=== PATIENT | female | born 1940 | race Caucasian/White ===

== ENCOUNTER → 2017-11-18 | Day surgery (SDC) | payer MEDICARE ==
[2017-11-13 09:27] LABS: BASOPHILS # (AUTO) 0.1 (0.0-0.1); BASOPHILS % 1.5 % (0.0-1.0); EOSINOPHILS # (AUTO) 0.1 (0.0-0.4); EOSINOPHILS % 2.2 % (0.0-6.0); HEMATOCRIT 35.8 % (34.2-44.1); HEMOGLOBIN 11.8 g/dL (12.0-16.0); LYMPHOCYTES # (AUTO) 2.4 (1.0-3.2); LYMPHOCYTES % 40.2 % (18.0-39.1); MEAN CORPUSCULAR HEMOGLOBIN 29.4 pg (28-32); MEAN CORPUSCULAR VOLUME 89.1 fL (81-99); MONOCYTES # (AUTO) 0.4 (0.2-0.8); NEUTROPHILS # (AUTO) 2.9 (2.1-6.9); NEUTROPHILS % 48.8 % (38.7-80.0); PLATELET COUNT 316 x10e3/uL (140-360); RED BLOOD COUNT 4.02 x10e6/uL (3.6-5.1); RED CELL DISTRIBUTION WIDTH 13.3 % (11.7-14.4)
[~2017-11-18] MED LIST: CALCIUM CARBON500 MG PO; COLESTIPOL HCL1 GM PO; CRANBERRY500 M1 PO; FISH OIL 1,0001 EAC2; LIDOCAINE HCL 2% LOCAL INJ 5 ML SDV VIAL INJ ONE; LISINOPRIL10 MG PO; MIDAZOLAM HCL 2 MG/2 ML VIAL ONE; PANTOPRAZOLE 40 MG 10ML VIAL ONE; POTASSIUM CHLO10 ME1 PO; PREVAGEN; PROPOFOL IV EMULSION 10 MG/ML 50 ML VIAL ONE; [UNRECOGNIZED DRUG - OTHER]
--- OUTSIDE RECORDS SUMMARY | 2017-11-18 10:23 | XMS REPORT | Clinical Summary ---
Author Author [facility] Address Unknown Phone Unavailable Care Team Providers Care Shank Archer Name Role Phone [place] ar[place] PCP Allergies Active Allergy Reactions Severity Noted Date Comments Hydroxyzine Hcl 12/11/2016 Current Medications Prescription Sig. Disp. Refills Start End Date Status Date lisinopril Take 20 mg by mouth Active (PRINIVIL,ZESTRIL) 20 mg daily. tablet azelastine-fluticasone 1 spray by Each Nare Active (DYMISTA) 137-50 route 2 (two) times a mcg/spray day. spray,non-aerosol acetaminophen-codeine Take 1 tablet by mouth 10 tablet 0 12/12/19 (TYLENOL WITH CODEINE #3) every 4 (four) hours as 17 17 300-30 mg per tablet needed for moderate pain for up to 10 doses. Active Problems No known active problems Encounters Date Type Specialty Care Team Description 02/04/2017 Office Visit Ortho Sports Medicine Edgard Owens, Closed Colles' fracture MD of left radius with routine healing, subsequent encounter (Primary Dx) 01/14/2017 Office Visit Ortho Sports Medicine Edgard Owens, Closed Colles' fracture MD of left radius with routine healing, subsequent encounter (Primary Dx) 01/01/2017 Office Visit Ortho Sports Medicine Edgard Owens, Closed Colles' fracture MD of left radius with routine healing, subsequent encounter (Primary Dx) 12/14/2016 Office Visit Orthopedic Surgery Edgard Owens, Closed Colles' fracture MD of left radius, initial encounter (Primary Dx) 12/11/2016 Emergency Emergency Medicine Nickie Robertson MD Closed fracture of distal end of left radius, unspecified fracture morphology, initial encounter (Primary Dx) after 11/17/2016 Social History Tobacco Use Types Packs/Day Years Used Date Never Smoker Alcohol Use Drinks/Week oz/Week Comments Yes rare Sex Assigned at Date Recorded Not on file Last Filed Vital Signs Vital Sign Reading Time Taken Blood Pressure 128/77 02/04/2017 10:21 AM CDT Pulse 80 02/04/2017 10:21 AM CDT Temperature 36.7 C (98 F) 12/11/2016 11:49 AM CDT Respiratory Rate 20 12/11/2016 1:57 PM CDT Oxygen Saturation 98% 12/11/2016 1:57 PM CDT Inhaled Oxygen - - Concentration Weight 38.6 kg (85 lb) 02/04/2017 10:21 AM CDT Height 157.5 cm (5' 2") 02/04/2017 10:21 AM CDT Body Mass Index 15.55 02/04/2017 10:21 AM CDT Plan of Treatment Health Maintenance Due Date Last Done Comments COLONOSCOPY 1992 MAMMOGRAM 1992 ZOSTER VACCINE 2002 PNEUMOCOCCAL 2007 POLYSACCHARIDE VACCINE AGE 65 AND OVER PNEUMOCOCCAL-13 2007 INFLUENZA VACCINE 03/12/2018 Procedures Procedure Name Priority Date/Time Associated Diagnosis Comments MO APPLY FOREARM Routine 12/11/2016 Results for this SPLINT,STATIC 10:15 PM CDT procedure are in the results section. after 11/17/2016 Results * XR Wrist 3+ Vw Left (02/04/2017 10:40 AM) Only the most recent of 4 results within the time period is included. Specimen Performing Laboratory [address] [address] Narrative Xrays: The x-rays were ordered and personally reviewed by me. 3 views of the left wrist Reason for exam: left wrist pain Impression: Left distal radius fracture with interval healing from the last set of x-rays dorsal prominence appreciated * SPLINT APPLICATION (12/11/2016 10:15 PM) Narrative Bud Barr PA-C 12/11/20161:57 PM Splint Application Performed by: BUD BARR Authorized by: NICKIE ROBERTSON Consent: Consent obtained:Verbal Consent given by:Patient Risks discussed:Discoloration, numbness, pain and swelling Pre-procedure details: Sensation:Normal Procedure details: Laterality:Left Location:Wrist Wrist:L wrist Splint type:Volar short arm Supplies:Ortho-Glass, cotton padding and elastic bandage Post-procedure details: Pain:Unchanged Sensation:Normal Patient tolerance of procedure:Tolerated well, no immediate complications after 11/17/2016 Insurance Payer Benefit Subscriber ID Type Phone Address Plan / Group HUMANA MEDICARE HUMANA xxxxxxxxx PPO MEDICARE PPO/PFFS/E [facility] [place] [address]
--- NOTE | 2017-11-18 14:20 | Operative Report ---
DATE OF PROCEDURE: November 18, 2017 REFERRING PHYSICIAN: Dr. Roverto Francis PROCEDURE PERFORMED: Esophagogastroduodenoscopy with biopsies. INDICATIONS FOR EGD: Heartburn, nausea and vomiting. MEDICATION: Patient was done under MAC. Please see anesthesiologist's note. PROCEDURE: With the patient in the left lateral decubitus position, the flexible fiberoptic Olympus gastroscope was introduced into the esophagus under direct visualization without any difficulty. There was some patchy erythema noted in the distal esophagus. The scope was then advanced with ease into the stomach, traversing a small hiatal hernia. Mucosa overlying the antrum and the body revealed some patchy erythema and low-grade edema, and biopsies were obtained and sent to stain for H. pylori. The pylorus was of normal contour and shape. It was intubated with ease, and the scope was advanced all the way to the 2nd portion of the duodenum. The scope was then withdrawn slowly. Mucosa overlying the proximal 2nd portion and the duodenal bulb appeared to be within normal limits. The scope was then withdrawn back into the stomach and retroflexed. The mucosa overlying the fundus and the cardia appeared to be within normal limits. The scope was then straightened out. The stomach was decompressed. Scope was subsequently withdrawn. Patient tolerated the procedure well. IMPRESSION 1. Distal esophagitis, mild. 2. Small hiatal hernia. 3. Gastritis, biopsied. Biopsies sent to stain for H. pylori. PLAN: Follow up histology. Initiate Protonix 40 mg 1 p.o. q.a.m. a.c. Job#: [id number] cc:ROVERTO FRANCIS DO
== END | disposition home or self-care (01) ==
LOC: OR 10:20
PROVIDERS: ATTEND Internal Medicine Gastroenterology
DX: K29.70 Gastritis, unspecified, without bleeding (principal); K20.9 Esophagitis, unspecified; K44.9 Diaphragmatic hernia without obstruction or gangrene; M81.0 Age-related osteoporosis without current pathological fracture; I10 Essential (primary) hypertension; R00.1 Bradycardia, unspecified; Z01.810 Encounter for preprocedural cardiovascular examination; Z01.812 Encounter for preprocedural laboratory examination; Z80.0 Family history of malignant neoplasm of digestive organs
CPT/HCPCS: 36415; 43239; 85025; 88305; 88312; 93005; J2001; J2250

== ENCOUNTER 2018-03-20 12:25 | Observation (INO) | payer MEDICARE ==
[~2018-03-20] VITALS: Ht 157.5 cm; Wt 39.9 kg
[~2018-03-20 12:25] MED LIST changes: -LIDOCAINE HCL 2% LOCAL INJ 5 ML SDV VIAL INJ ONE; -MIDAZOLAM HCL 2 MG/2 ML VIAL ONE; -PANTOPRAZOLE 40 MG 10ML VIAL ONE; -PROPOFOL IV EMULSION 10 MG/ML 50 ML VIAL ONE
[2018-03-20] MEDS ORDERED: ONDANSETRON HCL INJ 2 MG/ML VIAL IV STA (12:51)
[2018-03-20 13:16] LABS: BASOPHILS # (AUTO) 0.1 (0.0-0.1); BASOPHILS % 0.8 % (0.0-1.0); EOSINOPHILS % 0.1 % (0.0-6.0); HEMATOCRIT 36.5 % (34.2-44.1); HEMOGLOBIN 12.2 g/dL (12.0-16.0); LYMPHOCYTES # (AUTO) 1.5 (1.0-3.2); LYMPHOCYTES % 21.1 % (18.0-39.1); MEAN CORPUSCULAR HEMOGLOBIN 29.8 pg (28-32); MEAN CORPUSCULAR HGB CONC 33.4 g/dL (31-35); MONOCYTES # (AUTO) 0.3 (0.2-0.8); NEUTROPHILS # (AUTO) 5.3 (2.1-6.9); NEUTROPHILS % 73.9 % (38.7-80.0); PLATELET COUNT 345 x10e3/uL (140-360); RED CELL DISTRIBUTION WIDTH 13.1 % (11.7-14.4)
[2018-03-20 13:25] LABS: INR 0.98; PROTHROMBIN TIME 12.2 seconds (11.9-14.5)
[2018-03-20 13:26] LABS: PARTIAL THROMBOPLASTIN TIME 30.6 seconds (23.8-35.5)
[2018-03-20 13:31] LABS: CLARITY,URINE CLEAR (CLEAR); COLOR,URINE YELLOW (YELLOW); LEUKOCYTE ESTERASE ,URINE NEGATIVE (NEGATIVE); NITRITE,URINE NEGATIVE (NEGATIVE); PROTEIN,URINE DIPSTICK NEGATIVE (NEGATIVE)
[2018-03-20 13:32] LABS: BILIRUBIN,URINE NEGATIVE (NEGATIVE); KETONES,URINE 2+ (NEGATIVE); URINE UROBILINOGEN 0.2 mg/dL (0.2 - 1)
[2018-03-20 13:33] LABS: ALANINE AMINOTRANSFERASE 23 IU/L (0-55); ALBUMIN 4.2 g/dL (3.5-5.0); ALBUMIN/GLOBULIN RATIO 1.2 (0.8-2.0); ALKALINE PHOSPHATASE 70 IU/L (40-150); ANION GAP 16.9 mmol/L (8-16); BLOOD UREA NITROGEN 16 mg/dL (7-26); BUN/CREATININE RATIO 22 (6-25); CALCIUM 9.9 mg/dL (8.4-10.2); CARBON DIOXIDE 24 mmol/L (22-29); CHLORIDE 103 mmol/L (98-107); CREATINE KINASE 63 IU/L (29-168); CREATININE, SERUM 0.72 mg/dL (0.57-1.11); EST GLOMERULAR FILTRATION RATE > 60 ML/MIN (60-); GLUCOSE 107 mg/dL (74-118); MAGNESIUM 1.9 MG/DL (1.3-2.1); POTASSIUM 3.9 mmol/L (3.5-5.1); SODIUM 140 mmol/L (136-145)
[2018-03-20 13:34] LABS: BACTERIA,URINE RARE /HPF; EPITHELIAL CELLS,URINE RARE /LPF; RBC,URINE 0-5 /HPF (0-5); WBC,URINE (MAN) 0-5 /HPF (0-5)
--- NOTE | 2018-03-20 13:43 | Diagnostic Imaging Report ---
History:Dizziness Comparison studies:None Technique: Axial images were obtained from the skull base to the vertex. Coronal and sagittal images reconstructed from the axial data. Intravenous contrast: None Findings: Scalp/skull: No abnormalities. Extra-axial spaces: No masses. No fluid collections. Brain sulci: Mildly prominent. Ventricles: Mild compensatory dilatation. No hydrocephalus. Parenchyma: Few hypodensities in the supratentorial white matter are small vessel ischemic changes. No masses, hemorrhage, acute or chronic cortical vascular insults. Sellar/suprasellar region: No abnormalities. Craniocervical junction: Patent foramen magnum. No Chiari one malformation. Incidental findings: Atherosclerotic calcifications in the carotid siphons . Impression: No acute abnormalities. Chronic findings: 1. Mild generalized volume loss. 2. Mild supratentorial white matter small vessel ischemic changes. Signed by: DR Roscoe Siu M.D. on 03/20/2018 1:40 PM
[2018-03-20] MEDS ORDERED: POTASSIUM CHLORIDE 10MEQ/100ML 100 ML IV ONE (14:00)
[2018-03-20] MEDS ORDERED: MECLIZINE HCL 12.5 MG TAB PO ONE (14:00)
--- NOTE | 2018-03-20 14:04 | Diagnostic Imaging Report ---
PROCEDURE: A single AP view of the chest. COMPARISON: None. INDICATIONS: VERTIGO, NAUSEA FINDINGS: Lines/tubes: None. Lungs: The lungs are mildly hyperinflated. Biapical pleural-parenchymal scarring and left apical pleural thickening. There is no evidence of pneumonia or pulmonary edema. Pleura: There is no pleural effusion or pneumothorax. Heart and mediastinum: The heart and the mediastinum are unremarkable. Bones: No acute bony abnormality. Degenerative changes in the thoracic spine. IMPRESSION: 1. No acute cardiopulmonary abnormalities. 2. Mildly hyperinflated lungs may represent COPD. Biapical pleuroparenchymal scarring and left apical pleural thickening. No prior films are available for comparison. Recommend chest PA and lateral in 1-2 months to document stability. Alternatively, a chest CT may be obtained for further evaluation. John Paul Graham M.D. Dictated by: John Paul Graham M.D. on 03/20/2018 at 14:10 Electronically approved by: John Paul Graham M.D. on 03/20/2018 at 14:10
[2018-03-20] MEDS ORDERED: ONDANSETRON HCL INJ 2 MG/ML VIAL IV PRN (15:15)
[2018-03-20 17:00] VITALS: BP 160/73
[2018-03-20] MEDS ORDERED: PANTOPRAZOLE SO40 MG PO (17:10)
[2018-03-20 18:42] VITALS: BP 160/73
[2018-03-20 20:00] VITALS: BP 136/67
[2018-03-20 21:51] LABS: CREATINE KINASE 58 IU/L (29-168)
[2018-03-20 22:17] VITALS: BP 136/67
[2018-03-21] VITALS: BP 162/74
[2018-03-21 04:00] VITALS: BP 143/65
[2018-03-21 06:03] LABS: CREATINE KINASE 52 IU/L (29-168)
[2018-03-21 08:23] VITALS: BP 150/67
--- NOTE | 2018-03-21 10:23 | Diagnostic Imaging Report ---
EXAMINATION: MR angiogram of the [place] [without] contrast CLINICAL HISTORY: Generalized weakness, dizziness, evaluate for CVA. COMPARISON: Brain MRI on 03/20/18. TECHNIQUE: 3D TOF MR angiogram sequences of the head was performed without contrast. MIP images of the arteries were isolated into anterior-posterior groups. The source images, reformatted axial and coronal images, and bottling equipment sales representative projections of the MIP images through 180 degrees of rotation and tumbling were reviewed. FINDINGS: The vessels of the [place] and posterior circulation are patent, there is no evidence of significant stenosis. No vascular malformation or aneurysmal dilatation is identified. Anatomic variation: Anterior Communicating Artery: Patent Posterior Communicating Arteries: Patent on the left, no visualized on the right Vertebral arteries: Codominant Hypoplastic right A1 segment. IMPRESSION: Normal MR angiogram of the [place]. Particularly no major vessel occlusion or stenosis and no vascular malformations. Signed by: Dr. Clementina Zuniga M.D. on 03/21/2018 10:20 AM
[2018-03-21 11:52] VITALS: BP 147/96
[2018-03-21 16:18] VITALS: BP 125/81
[2018-03-21] MEDS ORDERED: LISINOPRIL 20 MG TAB PO SCH (17:00)
--- NOTE | 2018-03-21 22:19 | Consultation ---
DATE OF CONSULTATION: March 21, 2018 NEUROLOGY CONSULT NOTE HISTORY OF PRESENT ILLNESS: Ms. Herman is a 77-year-old right-hand dominant woman with past medical history significant for hypertension and chronic intermittent benign positional vertigo, admitted to [facility] on March 20, 2018 with severe vertigo. On the evening of March 19, 2018, the patient experienced the onset of severe vertigo with nausea. She does not report blurred vision or vomiting associated with the vertigo. Ms. Herman does report the vertigo began suddenly. As the patient has a history of chronic intermittent vertigo, she did not seek immediate medical attention. She did go to bed because often her vertigo has improved after a full night's sleep. However, the severe vertigo continued to be present upon awakening the following morning. Ms. Herman does not report a visual field cut or other disturbance, dysarthria, aphasia, facial droop, weakness, numbness, or confusion. She does endorse some impairment of balance and gait, which she attributes to the vertigo. While at home, Ms. Herman took meclizine 25 mg by mouth. This did not improve her symptoms. The patient then proceeded to the emergency center at [facility] for further evaluation of her symptoms. Upon arrival in the emergency center, the patient was afebrile with a blood pressure of 194/101 mmHg and a pulse of 97 beats per minute. Her neurological examination was documented as follows: Alert. Oriented x3. Mood/affect normal. Speech normal. No facial weakness or decrease in corneal reflex. No cerebellar findings. Abnormal gait (ambulates with assistance due to generalized weakness). No abnormal finger-nose test. No motor deficit. No sensory deficits. While in the emergency center, a CT of the brain without contrast was performed, but did not show evidence of recent large territorial ischemia or hemorrhage. Ms. Herman was admitted to [facility] as an inpatient for further evaluation of her symptoms. As detailed above, the patient has experienced chronic intermittent benign positional vertigo since the late or early . Often times, the vertigo occurs once per year, but may occur as often as 2 to 3 times per year. When she experiences the benign positional vertigo, the patient sees her primary care physician who administers an injection of an unknown medication. Ms. Herman reports the medicine "knocks me out." When the patient awakens several hours later, the vertigo has resolved. REVIEW OF SYSTEMS: Nausea, vertigo. Otherwise, the 12-point review of systems is negative. PAST MEDICAL HISTORY: Hypertension, peptic ulcer disease, chronic intermittent benign positional vertigo. PAST SURGICAL HISTORY: Esophagogastroduodenoscopy, colonoscopy, partial hysterectomy, removal of a cyst from the right breast, cholecystectomy, tumor resection from the right leg (benign), resection of a cyst on the neck, removal of a bone spur from the foot, appendectomy. PAST HOSPITALIZATIONS: Surgeries/procedures as listed, urinary tract infection, childbirth x2. FAMILY MEDICAL HISTORY: The patient's paternal and maternal grandparents are . Their medical histories are unknown. The patient's father is from a stroke. He had a history of diabetes mellitus as well. Ms. Herman's mother is from pancreatic cancer. She had a history of diabetes mellitus as well. Ms. Herman has 3 siblings, 2 brothers and 1 sister, all of whom are living. Both brothers have diabetes mellitus. Her sister has multiple urinary tract infections. Ms. Herman has 2 daughters, both of whom are alive and healthy. SOCIAL HISTORY: The patient is . She is a high school graduate. 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 The patient does not report current or prior tobacco or recreational drug use. She does drink an occasional glass of wine. HOME MEDICATIONS: Calcium carbonate 500 mg by mouth daily, colestipol 1 g by mouth daily, cranberry 500 mg by mouth daily, lisinopril 20 mg by mouth daily, omega-3 fatty acids/fish oil 1000 mg by mouth daily, Protonix 40 mg by mouth daily, Prevagen 10 mg by mouth daily. ALLERGIES: VISTARIL CAUSES VOMITING. NO KNOWN FOOD ALLERGIES. NO KNOWN ALLERGIES TO LATEX. NO KNOWN ALLERGIES TO IODINE OR OTHER CONTRAST MATERIALS. PHYSICAL EXAMINATION: VITAL SIGNS: Height 62 inches, weight 88 pounds, BMI 16.1 kg/sq m. Blood pressure 147/96 mmHg, pulse 88 beats per minute, respiratory rate 16 breaths per minute, oxygen saturation 98% on room air. GENERAL: The patient is awake and alert, does not appear distressed. Thin. HEENT: Normocephalic, atraumatic. Pupils are equal, round, and reactive to light. Moist mucous membranes. NECK: Supple. No appreciable thyromegaly. No appreciable carotid bruits. CARDIOVASCULAR: S1, S2, regular rate and rhythm. No murmurs, rubs, or gallops. RESPIRATORY: Clear to auscultation bilaterally. No wheezes, rhonchi, or rales. EXTREMITIES: The skin is warm and dry. No clubbing, cyanosis, or edema. The posterior tibial and dorsalis pedis pulses are 2+ and symmetric. SKIN: No rashes or lesions. NEUROLOGIC EXAMINATION: MEMORY/ATTENTION: The patient is awake and alert, oriented to person, place, time, and situation. CRANIAL NERVES: Cranial nerve I - not tested. Cranial nerves II, III, IV, and - Pupils are equal and round, react briskly to light (from 4 mm to 2 mm). Extraocular movements intact. No nystagmus. Cranial nerve V - Sensation to light touch and pinprick is intact in the bilateral V1 through V3 distributions. Strength of the temporalis and masseter muscles is within normal limits. Cranial nerve VII - The face is symmetric as are all facial movements. Strength is within normal limits. Cranial nerve VIII - Hearing is intact to finger rub bilaterally. Cranial nerve IX, X - The soft palate elevates equally and symmetrically. Cranial nerve XI - Normal strength of the bilateral sternocleidomastoid and trapezius muscles. Cranial nerve XII - The tongue protrudes midline and moves symmetrically from side to side. STRENGTH: Bulk is normal. Strength is 5/5 in the bilateral deltoids, biceps, triceps, wrist flexors and extensors, finger flexors and extensors, intrinsic hand muscles, hip flexors, knee flexors and extensors, ankle dorsiflexion and plantarflexion, and intrinsic foot muscles. Tone is normal. DTRs: Deep tendon reflexes are 2+ and symmetric at the triceps, biceps, brachioradialis, and patellas. Deep tendon reflexes are absent and symmetric at the Achilles. Plantar responses are flexor bilaterally. SENSATION: Sensation is intact to light touch and pinprick in both arms and both legs. CEREBELLAR: [id number] and heel-mary movements are intact without dysmetria or other impairment. Rapid alternating movements are intact. GAIT: Deferred. SPEECH: Spontaneous speech is normal without appreciable dysarthria or aphasia. Repetition is intact. INVOLUNTARY MOVEMENTS: None. PRONATOR DRIFT: None. LABORATORY DATA: The findings on the complete metabolic panel are within normal limits. Creatine kinase 63, 58, 52. CK-MB 1.10, 1.00, 1.00. Troponin I less than 0.001, less than 0.001, less than 0.001. B natriuretic peptide 90.4. The CBC with differential and platelets reveals a white blood cell count of 7.24 with a normal differential. The hemoglobin and hematocrit are 12.2 and 36.5, respectively. The platelet count is 345,000. PT 12.2, INR 0.98, PTT 30.6. A urinalysis is significant for 2+ ketones and 1+ blood. DIAGNOSTIC STUDIES: 1. Electrocardiogram, March 20, 2018: Normal sinus rhythm. 2. Chest x-ray, March 20, 2018: A. No acute cardiopulmonary abnormalities. B. Mildly hyperinflated lungs may represent COPD. Biapical pleural-parenchymal scarring and left apical pleural thickening. No prior films are available for comparison. Recommend chest PA and lateral in 1 to 2 months to document stability. Alternatively, a chest CT may be obtained for further evaluation. 3. CT of the brain without contrast, March 20, 2018: On my review, there is no evidence of recent large territorial ischemia, hemorrhage, mass, or mass effect. There is mild diffuse cerebral atrophy, appropriate for the patient's age. There are findings compatible with mild chronic small-vessel ischemic disease. 4. Bilateral carotid artery ultrasound with Doppler, March 20, 2018: There is atherosclerosis without hemodynamically significant stenosis at the bilateral carotid bulbs and bifurcations. Flow is antegrade in the bilateral vertebral arteries. 5. MRI of the brain without contrast, March 21, 2018: On my review, there is no evidence of recent large territorial ischemia, hemorrhage, mass, or mass effect. There is encephalomalacia in the left posterior middle cerebral artery distribution, possibly from a prior vascular insult. There is diffuse cerebral atrophy, appropriate for age. There are nonspecific scattered T2/FLAIR hyperintensities compatible with [id number] chronic small-vessel ischemic disease. 6. Head MRA without contrast, March 21, 2018: There are no hemodynamically significant stenoses of the intracranial blood vessels. ASSESSMENT AND PLAN: Ms. Herman is a 77-year-old right-hand dominant woman with past medical history significant for hypertension and chronic intermittent benign positional vertigo, admitted to [facility] on March 20, 2018 with severe vertigo and nausea. Ms. Herman symptoms resolved following the administration of meclizine 50 mg by mouth once. At present, the patient's neurological examination is nonfocal. Her laboratory data and other diagnostic studies have been reviewed and are documented above. The magnetic resonance imaging of the brain without contrast does not reveal a recent ischemic stroke or hemorrhage as the etiology of Ms. Herman symptoms. In my opinion, her symptoms probably represent a recurrence of her chronic intermittent benign positional vertigo. At present, the patient's symptoms have resolved. Her neurological examination is nonfocal. Therefore, there are no further recommendations from neurology at this time. Ms. Herman may be discharged to home. Thank you for this consultation. TIME SPENT: 70 minutes. Job#: [id number] DR CAVAZOS
--- NOTE | 2018-03-24 12:31 | Diagnostic Imaging Report ---
History: Dizziness Comparison studies: None Technique: Sagittal T2; axial DWI, FLAIR, MPGR, T1, Coronal FLAIR. Intravenous contrast: None Findings: Scalp: Normal in signal . No masses . Bone marrow: Normal in signal intensity. Extra-axial: No masses or fluid collections. Brain sulci: Appropriate for age. Ventricles: Normal in size . No hydrocephalus . Parenchyma: Scattered T2 FLAIR hyperintense foci in the supratentorial white matter are nonspecific small vessel ischemic changes. No masses, hemorrhage, acute or chronic cortical ischemic insults. Suprasellar region: No abnormalities. Craniocervical junction: No abnormalities. Patent foramen magnum. No Chiari one malformation. Vessels: Normal flow-voids in the arteries and sinuses. IMPRESSION: No acute abnormalities. Chronic findings: 1. Mild generalized volume loss 2. Mild supratentorial white matter small vessel ischemic changes. Signed by: Dr. Kyrie Brandon M.D. on 03/20/2018 5:58 PM
== END 2018-03-21 19:22 | disposition home or self-care (01) ==
LOC: ER 12:25 → ERHOLD 15:24 → MED/SURG 16:47
DX: H81.13 Benign paroxysmal vertigo, bilateral (principal); R53.1 Weakness; I10 Essential (primary) hypertension; K21.9 Gastro-esophageal reflux disease without esophagitis
CPT/HCPCS: 36415 ×2; 70450; 70544; 70551; 71045; 80053; 81001; 82550 ×2; 82553 ×2; 83735; 83880; 84484 ×2; 85025; 85610; 85730; 93005; 93880; 97139; 99284; G0378 ×2; J2405

== ENCOUNTER 2018-05-13 11:59 | Emergency (ER) | payer MEDICARE, OTHER ==
[~2018-05-13] VITALS: Ht 157.5 cm; Wt 40.8 kg
[~2018-05-13 11:59] MED LIST changes: +PANTOPRAZOLE SO40 MG PO
[2018-05-13] MEDS ORDERED: MORPHINE SULFATE INJ 4 MG/ML INJ IV STA (12:48)
[2018-05-13] MEDS ORDERED: SODIUM CHLORIDE 0.9% 1000ML 1,000 ML IV STA (12:48)
[2018-05-13] MEDS ORDERED: ONDANSETRON HCL INJ 2 MG/ML VIAL IV ONE (13:00)
[2018-05-13] MEDS ORDERED: FAMOTIDINE 20 MG/2 ML VIAL IV ONE (13:00)
[2018-05-13 13:13] LABS: BASOPHILS # (AUTO) 0.1 (0.0-0.1); BASOPHILS % 0.6 % (0.0-1.0); HEMATOCRIT 32.8 % (34.2-44.1); HEMOGLOBIN 10.7 g/dL (12.0-16.0); LYMPHOCYTES % 11.9 % (18.0-39.1); MEAN CORPUSCULAR HEMOGLOBIN 29.5 pg (28-32); MEAN CORPUSCULAR HGB CONC 32.6 g/dL (31-35); MEAN CORPUSCULAR VOLUME 90.4 fL (81-99); MONOCYTES # (AUTO) 0.3 (0.2-0.8); MONOCYTES % 3.1 % (4.4-11.3); NEUTROPHILS # (AUTO) 7.4 (2.1-6.9); NEUTROPHILS % 84.1 % (38.7-80.0); PLATELET COUNT 338 x10e3/uL (140-360); RED BLOOD COUNT 3.63 x10e6/uL (3.6-5.1); RED CELL DISTRIBUTION WIDTH 13.3 % (11.7-14.4)
[2018-05-13 13:34] LABS: BILIRUBIN,URINE NEGATIVE (NEGATIVE); CLARITY,URINE CLEAR (CLEAR); COLOR,URINE YELLOW (YELLOW); KETONES,URINE NEGATIVE (NEGATIVE); LEUKOCYTE ESTERASE ,URINE NEGATIVE (NEGATIVE); NITRITE,URINE NEGATIVE (NEGATIVE); PROTEIN,URINE DIPSTICK NEGATIVE (NEGATIVE); URINE UROBILINOGEN 0.2 mg/dL (0.2 - 1)
[2018-05-13 13:35] LABS: ALANINE AMINOTRANSFERASE 15 IU/L (0-55); ALBUMIN/GLOBULIN RATIO 1.3 (0.8-2.0); ALKALINE PHOSPHATASE 55 IU/L (40-150); AMYLASE 40 U/L (25-125); ANION GAP 15.6 mmol/L (8-16); BLOOD UREA NITROGEN 24 mg/dL (7-26); BUN/CREATININE RATIO 35 (6-25); CALCIUM 9.5 mg/dL (8.4-10.2); CARBON DIOXIDE 23 mmol/L (22-29); CHLORIDE 105 mmol/L (98-107); CREATININE, SERUM 0.68 mg/dL (0.57-1.11); EST GLOMERULAR FILTRATION RATE > 60 ML/MIN (60-); GLUCOSE 105 mg/dL (74-118); LIPASE 20 U/L (8-78); POTASSIUM 3.6 mmol/L (3.5-5.1); SODIUM 140 mmol/L (136-145)
[2018-05-13 13:44] LABS: EPITHELIAL CELLS,URINE RARE /LPF
[2018-05-13] MEDS ORDERED: ACETAMINOPHEN 325 MG TAB PO ONE (13:45)
--- NOTE | 2018-05-13 14:52 | Diagnostic Imaging Report ---
ADDENDUM #1 The following addendum is being made to comply with coding criteria, and does not substantially change the findings or recommendations of the original report All CT scans are performed using radiation dose reduction techniques. Technical factors are evaluated and adjusted to ensure appropriate moderation of exposure. Automated dose management technology is applied to adjust the radiation dose to minimize exposure while achieving a diagnostic-quality image. Signed by: Dr. Han Mcpherson M.D. on 05/20/2018 12:04 PM ORIGINAL REPORT EXAM: CT Abdomen and Pelvis WITH contrast INDICATION: Abdominal pain. Prior cholecystectomy. Appendectomy. Hysterectomy. COMPARISON: None. TECHNIQUE: Abdomen and pelvis were scanned utilizing a multidetector helical scanner from the lung base to the pubic symphysis after administration of IV contrast. Coronal and sagittal reformations were obtained. Routine protocol was performed. Scan was performed when during portal venous phase. IV CONTRAST: 100 mL of Isovue-370 ORAL CONTRAST: Water RADIATION DOSE: Total DLP: 158.88 mGy*cm Estimated effective dose: (DLP x 0.015 x size factor) mSv COMPLICATIONS: None FINDINGS: LINES and TUBES: None. LOWER THORAX: Ill-defined groundglass density in the right lung base could be due to a resolving pneumonia. HEPATOBILIARY: No focal hepatic lesions. No biliary ductal dilation. GALLBLADDER: Surgically absent. Prominent common bile duct likely due to reservoir effect from cholecystectomy. SPLEEN: No splenomegaly. PANCREAS: No focal masses or ductal dilatation. ADRENALS: No adrenal nodules KIDNEYS/URETERS: Kidneys enhance symmetrically. No hydronephrosis. Small hypodensities in the kidneys likely due to small cysts. No stones. GI TRACT: No abnormal distention, wall thickening, or evidence of bowel obstruction. Scattered diverticulosis without evidence of diverticulitis. PELVIC ORGANS/BLADDER: Unremarkable. LYMPH NODES: No lymphadenopathy. VESSELS: Scattered vascular calcification. PERITONEUM / RETROPERITONEUM: No free air or fluid. BONES: Unremarkable. SOFT TISSUES: Unremarkable. IMPRESSION: 1. Scattered diverticulosis without evidence of diverticulitis. Signed by: Dr. Han Mcpherson M.D. on 05/13/2018 2:49 PM
[2018-05-13] MEDS ORDERED: IOPAMIDOL 370 MG/ML 200 ML INFUS..BTL INJ ONE (15:46)
[2018-05-13] MEDS ORDERED: SODIUM CHLORIDE 0.9% 50ML 50 ML ONE (15:46)
[2018-05-13 16:39] VITALS: BP 119/78
== END 2018-05-13 18:31 | disposition home or self-care (01) ==
LOC: ER 11:59
DX: R10.11 Right upper quadrant pain (principal); R10.13 Epigastric pain; R11.2 Nausea with vomiting, unspecified; E86.0 Dehydration; K29.00 Acute gastritis without bleeding; I10 Essential (primary) hypertension
CPT/HCPCS: 36415; 74177; 80053; 81001; 82150; 83690; 85025; 87040; 87086; 93005; 99284; J2405; J7030; Q9967

== ENCOUNTER → 2018-11-15 | Day surgery (SDC) | payer MEDICARE ==
[2018-11-12 15:02] LABS: BASOPHILS # (AUTO) 0.1 (0.0-0.1); BASOPHILS % 1.1 % (0.0-1.0); EOSINOPHILS # (AUTO) 0.1 (0.0-0.4); EOSINOPHILS % 0.9 % (0.0-6.0); HEMATOCRIT 33.6 % (34.2-44.1); HEMOGLOBIN 10.8 g/dL (12.0-16.0); LYMPHOCYTES # (AUTO) 2.4 (1.0-3.2); LYMPHOCYTES % 28.8 % (18.0-39.1); MEAN CORPUSCULAR HEMOGLOBIN 29.3 pg (28-32); MEAN CORPUSCULAR HGB CONC 32.1 g/dL (31-35); MEAN CORPUSCULAR VOLUME 91.1 fL (81-99); MONOCYTES # (AUTO) 0.5 (0.2-0.8); MONOCYTES % 6.1 % (4.4-11.3); NEUTROPHILS # (AUTO) 5.1 (2.1-6.9); NEUTROPHILS % 62.9 % (38.7-80.0); PLATELET COUNT 346 x10e3/uL (140-360); RED BLOOD COUNT 3.69 x10e6/uL (3.6-5.1); RED CELL DISTRIBUTION WIDTH 13.2 % (11.7-14.4)
[~2018-11-15] MED LIST changes: +ALENDRONATE SOD70 MG PO; +CRANBERRY TABL1 EACH PO; +FENTANYL CITRATE/PF 100MCG/2 ML INJ ONE; +FISH OIL 1,0001 EAC2 PO; +GLUCAGON FOR INJ 1 MG VIAL ONE; +MIDAZOLAM HCL 2 MG/2 ML VIAL ONE; +PROPOFOL IV EMULSION 10 MG/ML 50 ML VIAL ONE
--- NOTE | 2018-11-15 23:37 | Operative Report ---
DATE OF PROCEDURE: 11/15/2018 SURGEON: Gerardo Cordova MD PROCEDURES: Colonoscopy and polypectomy. INDICATIONS FOR COLONOSCOPY: Surveillance colonoscopy, personal history of colon polyps. MEDICATIONS: The patient was done under MAC, please see anesthesiologist's note. PROCEDURE IN DETAIL: With the patient in left lateral decubitus position, a flexible fiberoptic Olympus colonoscope was inserted into the rectum with ease and advanced all the way to the cecum. It was then withdrawn slowly. Mucosa overlying the cecum, ascending colon, transverse colon grossly appeared to be within normal limits. Some diverticular disease was noted in the distal descending and sigmoid colon. One polyp was hot biopsied from the sigmoid colon. The rectum grossly appeared to be within normal limits. The scope was then retroflexed into the distal rectum and small internal hemorrhoids were noted, none of which was actively bleeding. The scope was then straightened out, it was subsequently withdrawn. The patient tolerated procedure well. IMPRESSION: 1. Diverticulosis. 2. Sigmoid colon polyp, hot biopsied. 3. Internal hemorrhoids, none actively bleeding. PLAN: Follow up histology. Initiate high-fiber, low-fat diet. Initiate high-fiber supplement. No additional surveillance colonoscopy is indicated in this 78-year-old patient. MD VICKI Mensah/SHERICE /[id number] cc: Carlo Norris DO
--- OUTSIDE RECORDS SUMMARY | 2018-11-17 14:06 | XMS REPORT | Clinical Summary ---
Author Author [facility] Address Unknown Phone Unavailable Care Team Providers Care Senior Project Manager Engineering Name Role Phone Carlo Norris DO PCP Allergies Comments Active Allergy Reactions Severity Noted Date Hydroxyzine Hcl 12/11/2016 Medications End Date Status Medication Sig Dispensed Refills Start Date Active lisinopril Take 20 mg by 0 (PRINIVIL,ZESTRIL) 20 mg mouth daily. tablet Active azelastine-fluticasone 1 spray by 0 (DYMISTA) 137-50 Each Nare mcg/spray route 2 (two) spray,non-aerosol times a day. Active Problems No known active problems Social History Date Tobacco Use Types Packs/Day Years Used Never Smoker Alcohol Use Drinks/Week oz/Week Comments Yes rare Sex Assigned at Date Recorded Not on file Industry Job Start Date Occupation Not on file Not on file Not on file Travel End Travel History Travel Start No recent travel history available. Last Filed Vital Signs Not on file Plan of Treatment Health Maintenance Due Date Last Done Comments SHINGLES VACCINES (#1) 1992 65+ PNEUMOCOCCAL VACCINE 2007 (1 of 2 - PCV13) PNEUMOCOCCAL 2007 POLYSACCHARIDE VACCINE AGE 65 AND OVER INFLUENZA VACCINE 03/12/2019 Results Not on fileafter 11/16/2017 Insurance Payer Benefit Subscriber ID Type Phone Address Plan / Group [employer] MEDICARE HU[employer]NA xxxxxxxxx PPO MEDICARE PPO/PFFS/[facility] JEFF guerrero (Home) [place] [address] Advance Directives Patient has advance care planning documents on file. For more information, becky romero contact: Rigoberto Mack [phone] [place] [address]
== END | disposition home or self-care (01) ==
LOC: OR 12:42
PROVIDERS: ATTEND Internal Medicine Gastroenterology
DX: Z09 Encounter for follow-up examination after completed treatment for conditions other than malignant neoplasm (principal); K63.5 Polyp of colon; K57.30 Diverticulosis of large intestine without perforation or abscess without bleeding; K64.8 Other hemorrhoids; K29.70 Gastritis, unspecified, without bleeding; K21.9 Gastro-esophageal reflux disease without esophagitis; I10 Essential (primary) hypertension; M81.0 Age-related osteoporosis without current pathological fracture; Z88.8 Allergy status to other drugs, medicaments and biological substances; Z01.810 Encounter for preprocedural cardiovascular examination; Z01.812 Encounter for preprocedural laboratory examination; Z80.0 Family history of malignant neoplasm of digestive organs
CPT/HCPCS: 36415; 45384; 85025; 88305; 93005; J1610; J2250; J2704

== ENCOUNTER → 2021-07-25 | Outpatient (CLI) | payer MEDICARE ==
[~2021-07-25] MED LIST changes: -FENTANYL CITRATE/PF 100MCG/2 ML INJ ONE; -GLUCAGON FOR INJ 1 MG VIAL ONE; -MIDAZOLAM HCL 2 MG/2 ML VIAL ONE; -PROPOFOL IV EMULSION 10 MG/ML 50 ML VIAL ONE
== END ==
LOC: DX 12:36
PROVIDERS: ATTEND Family Medicine
DX: M81.8 Other osteoporosis without current pathological fracture (principal); N95.0 Postmenopausal bleeding
CPT/HCPCS: 77080

== ENCOUNTER → 2021-07-27 | Outpatient (CLI) | payer MEDICARE | LOC: MAMMO 12:54 | PROVIDERS: ATTEND Family Medicine | DX: Z12.31 Encounter for screening mammogram for malignant neoplasm of breast (principal) | CPT/HCPCS: 77067 ==

== ENCOUNTER → 2022-06-26 | Outpatient (CLI) | payer MEDICARE ==
[~2022-06-26] MED LIST changes: +DIATRIZOATE MEGL/DIATRIZOA SOD 30 ML BTL PO ONE; +IOPAMIDOL 370 MG/ML 100 ML INFUS..BTL INJ ONE
[2022-06-26 12:52] LABS: CREATININE, SERUM 0.74 mg/dL (0.57-1.11)
== END ==
LOC: CT 11:48
PROVIDERS: ATTEND Family Medicine
DX: R63.4 Abnormal weight loss (principal)
CPT/HCPCS: 36415; 71260; 74177; 82565; 84520; Q9963; Q9967